=== PATIENT | female | born 1950 | race Hispanic/Latino ===

== ENCOUNTER → 2017-08-13 | Outpatient (CLI) | payer MEDICARE, OTHER ==
[~2017-08-13] MED LIST: AMLODIPINE BESYL5 MG PO; AMOXICILLIN250 MG PO; ATORVASTATIN CA20 MG PO; DICYCLOMINE HCL10 MG PO; HUMALOG100 UNIT/1 SQ; HUMALOG100 UNITS/; HYDROCHLOROTHIA25 MG PO; ISOPTO CARPINE15 ML OP; LEVEMIR100 UNIT/1; LEVEMIR100 UNIT/1 SQ; LINZESS PO; LOSARTAN POTAS100 MG PO; LOSARTAN POTASS25 MG PO; METFORMIN HCL500 M2 PO; METOPROLOL SUCC25 MG PO; NOVOLOG MI100 UNIT/1 SQ; PANTOPRAZOLE SO40 MG PO; SERTRALINE HCL50 MG PO; ULTRAM 50MG50 MG PO; XARELTO15 MG PO; XARELTO20 MG PO; ZEGERID 40 MG1 EACH PO; ZOLOFT50 MG PO
--- NOTE | 2017-08-13 13:41 | Diagnostic Imaging Report ---
PROCEDURE:L-SPINE COMPLETE COMPARISON:None. INDICATIONS:SPONDYLOSIS WITH RADICULOPATHY FINDINGS: There are 5 lumbar-type vertebral bodies. The vertebral bodies are well-aligned without evidence of spondylolisthesis. Degenerative changes spine anterior osteophytosis at multiple levels and bilateral facet hypertrophy at L4/L5. There are no fractures, lytic or blastic lesions. The disc-space heights are well-maintained. The sacroiliac joints are unremarkable. CONCLUSION: No acute radiographic abnormality. Degenerative changes. Dictated by: Law Wood M.D. on 08/13/2017 at 13:42 Electronically approved by: Law Wood M.D. on 08/13/2017 at 13:42
--- NOTE | 2017-08-13 13:42 | Diagnostic Imaging Report ---
PROCEDURE:SACRUM X-RAY TECHNIQUE: INDICATION:Pain. COMPARISON:None. FINDINGS: No acute fracture or dislocation. Bone mineralization is within normal limits. The soft tissues are unremarkable. No expansile or lytic or sclerotic lesion. CONCLUSION: No acute radiographic abnormality. Dictated by: Law Wood M.D. on 08/13/2017 at 13:43 Electronically approved by: Law Wood M.D. on 08/13/2017 at 13:43
== END ==
LOC: RAD 12:55
PROVIDERS: ATTEND Internal Medicine
DX: M47.27 Other spondylosis with radiculopathy, lumbosacral region (principal)
CPT/HCPCS: 72110; 72220

== ENCOUNTER → 2017-10-01 | Outpatient (CLI) | payer MEDICARE, OTHER ==
[~2017-10-01] MED LIST changes: +IOPAMIDOL 370 MG/ML 200 ML INFUS..BTL INJ ONE; +SODIUM CHLORIDE 0.9% 50ML 50 ML ONE
[2017-10-01 11:35] LABS: BLOOD UREA NITROGEN 9 mg/dL (7-26); BUN/CREATININE RATIO 12 (6-25); CREATININE, SERUM 0.76 mg/dL (0.57-1.11); EST GLOMERULAR FILTRATION RATE > 60 ML/MIN (60-)
--- NOTE | 2017-10-01 12:47 | Diagnostic Imaging Report ---
PROCEDURE: CT ABDOMEN WITH CONTRAST TECHNIQUE: The abdomen was scanned utilizing a multidetector helical scanner from the diaphragm to the iliac crest after the IV administration of 100 cc of Isovue 370 and the oral administration of water. Coronal and sagittal multiplanar reformations were obtained. COMPARISON: [facility], CT, CT ABDOMEN/PELVIS W, 10/07/2016, 21:09. INDICATIONS: UPPER ABDOMINAL PAIN FINDINGS: LOWER THORAX: Stable 3-4 mm nodule in the left lower lobe (series 2 image 10).. HEPATOBILIARY: No focal hepatic lesions. Stable mild central intrahepatic biliary ductal dilation and mild dilation of the common bile duct, which measures 9 mm at the alfredo hepatis. No radiopaque intraluminal filling defect. Cholecystectomy clips. SPLEEN: No splenomegaly. PANCREAS: No focal masses or ductal dilatation. Moderate pancreatic atrophy, stable ADRENALS: No adrenal nodules. KIDNEYS: No hydronephrosis, stones, or solid mass lesions. Stable subcentimeter hypodense lesion in the superior to mid right kidney (series 2 image 25), which is too small to characterize. PERITONEUM / RETROPERITONEUM: No free air or fluid. LYMPH NODES: No lymphadenopathy. VESSELS: Unremarkable. GI TRACT: No bowel dilation or evidence of obstruction. There is mild prominence of fluid-filled loops of jejunum (for example series 2, images 36-45) in the left upper quadrant, without surrounding fat stranding or intrarenal masses. Rest of bowel is unremarkable. BONES AND SOFT TISSUES: No aggressive lytic lesions. Degenerative disc changes in the lower thoracic and lumbosacral spine, predominantly at L4-L5. Facet hypertrophy L5-S1. IMPRESSION: 1. Findings in the jejunum may represent mild enteritis, in the appropriate clinical setting. No evidence of perforation or abscess formation. Rest of the bowel is unremarkable. 2. Stable 3-4 mm nodule in the left lower lobe. No further followup is indicated given its small size and stability per Fleischner Society 2017 guidelines. Anival Mina M.D. Dictated by: Anival Mina M.D. on 10/01/2017 at 12:49 Electronically approved by: Anival Mina M.D. on 10/01/2017 at 12:49
== END ==
LOC: CT 10:34
PROVIDERS: ATTEND Internal Medicine
DX: R10.10 Upper abdominal pain, unspecified (principal); R91.1 Solitary pulmonary nodule
CPT/HCPCS: 36415; 74160; 82565; 84520; Q9967

== ENCOUNTER → 2018-06-01 | Outpatient (CLI) | payer MEDICARE, OTHER ==
[~2018-06-01] MED LIST changes: -IOPAMIDOL 370 MG/ML 200 ML INFUS..BTL INJ ONE; -SODIUM CHLORIDE 0.9% 50ML 50 ML ONE
== END ==
LOC: MAMMO 13:10
PROVIDERS: ATTEND Internal Medicine
DX: Z12.31 Encounter for screening mammogram for malignant neoplasm of breast (principal)
CPT/HCPCS: 77067

== ENCOUNTER → 2019-03-14 | Outpatient (CLI) | payer MEDICARE, OTHER ==
--- NOTE | 2019-03-14 16:36 | Diagnostic Imaging Report ---
Abdomen, 2 views. History: Epigastric abdominal pain. Findings: Air is scattered throughout nondilated small and large bowel. Moderate stool is present. There are no air-fluid levels. There is no evidence of free air. Cholecystectomy is present in the right upper quadrant. There are no masses or abnormal calcifications. The osseous structures are intact. IMPRESSION: Nonobstructive bowel gas pattern. Signed by: Junito Lee on 03/14/2019 4:33 PM
== END ==
LOC: RAD 08:33
PROVIDERS: ATTEND Internal Medicine
DX: R10.10 Upper abdominal pain, unspecified (principal)
CPT/HCPCS: 74019

== ENCOUNTER → 2019-06-29 | Outpatient (CLI) | payer MEDICARE, OTHER | LOC: MAMMO 10:14 | PROVIDERS: ATTEND Internal Medicine | DX: Z12.31 Encounter for screening mammogram for malignant neoplasm of breast (principal) | CPT/HCPCS: 77067 ==

== ENCOUNTER → 2020-05-18 | Outpatient (CLI) | payer MEDICARE, OTHER | LOC: MAMMO 11:56 | PROVIDERS: ATTEND Internal Medicine | DX: Z12.31 Encounter for screening mammogram for malignant neoplasm of breast (principal) | CPT/HCPCS: 77067 ==

== ENCOUNTER → 2020-05-25 | Outpatient (CLI) | payer MEDICARE, OTHER | LOC: RAD 15:59 | PROVIDERS: ATTEND Internal Medicine | DX: M47.27 Other spondylosis with radiculopathy, lumbosacral region (principal) | CPT/HCPCS: 72110; 72220 ==

== ENCOUNTER → 2020-06-07 | Outpatient (CLI) | payer MEDICARE, OTHER | LOC: US 09:07 | PROVIDERS: ATTEND Internal Medicine | DX: R92.8 Other abnormal and inconclusive findings on diagnostic imaging of breast (principal) ==

== ENCOUNTER → 2020-11-26 | Outpatient (CLI) | payer MEDICARE, OTHER | LOC: RAD 13:30 | PROVIDERS: ATTEND Internal Medicine | DX: R06.02 Shortness of breath (principal) | CPT/HCPCS: 71046 ==

== ENCOUNTER → 2020-12-24 | Outpatient (CLI) | payer OTHER, MEDICARE | LOC: RAD 12:45 | PROVIDERS: ATTEND Internal Medicine | DX: R10.11 Right upper quadrant pain (principal) | CPT/HCPCS: 74018 ==

== ENCOUNTER → 2021-01-01 | Outpatient (CLI) | payer MEDICARE, OTHER ==
[~2021-01-01] MED LIST changes: +IOPAMIDOL 370 MG/ML 200 ML INFUS..BTL INJ ONE; +SODIUM CHLORIDE 0.9% 50ML 50 ML ONE
== END ==
LOC: CT 07:38
PROVIDERS: ATTEND Internal Medicine
DX: R10.11 Right upper quadrant pain (principal)
CPT/HCPCS: 74160; Q9967

== ENCOUNTER → 2021-02-28 | Outpatient (CLI) | payer MEDICARE, OTHER ==
[~2021-02-28] MED LIST changes: -IOPAMIDOL 370 MG/ML 200 ML INFUS..BTL INJ ONE; -SODIUM CHLORIDE 0.9% 50ML 50 ML ONE
== END ==
LOC: RAD 10:18
PROVIDERS: ATTEND Internal Medicine
DX: M10.062 Idiopathic gout, left knee (principal)

== ENCOUNTER → 2021-03-21 | Outpatient (CLI) | payer MEDICARE, OTHER | LOC: RAD 11:54 | DX: M25.561 Pain in right knee (principal); M25.562 Pain in left knee ==

== ENCOUNTER → 2021-06-18 | Outpatient (CLI) | payer MEDICARE, OTHER | LOC: MAMMO 10:23 | PROVIDERS: ATTEND Internal Medicine | DX: Z12.31 Encounter for screening mammogram for malignant neoplasm of breast (principal); G45.9 Transient cerebral ischemic attack, unspecified | CPT/HCPCS: 70551; 77067 ==

== ENCOUNTER 2022-01-14 10:18 | Emergency (ER) | payer MEDICARE, OTHER ==
[~2022-01-14] VITALS: Ht 149.9 cm; Wt 59.4 kg
[2022-01-14 11:21] LABS: BASOPHILS % 0.1 % (0.0-1.0); EOSINOPHILS % 0.1 % (0.0-6.0); HEMATOCRIT 43.5 % (34.2-44.1); HEMOGLOBIN 13.9 g/dL (12.0-16.0); LYMPHOCYTES # (AUTO) 1.1 (1.0-3.2); LYMPHOCYTES % 8.5 % (18.0-39.1); MEAN CORPUSCULAR HEMOGLOBIN 29.8 pg (28-32); MEAN CORPUSCULAR VOLUME 93.1 fL (81-99); MONOCYTES # (AUTO) 0.5 (0.2-0.8); NEUTROPHILS # (AUTO) 11.7 (2.1-6.9); NEUTROPHILS % 86.8 % (38.7-80.0); PLATELET COUNT 313 x10e3/uL (140-360); RED BLOOD COUNT 4.67 x10e6/uL (3.6-5.1); RED CELL DISTRIBUTION WIDTH 13.2 % (11.7-14.4)
[2022-01-14 11:44] LABS: ALBUMIN 3.8 g/dL (3.5-5.0); ALBUMIN/GLOBULIN RATIO 0.9 (0.8-2.0); CREATININE, SERUM 0.98 mg/dL (0.57-1.11); MAGNESIUM 2.4 MG/DL (1.3-2.1)
[2022-01-14] MEDS ORDERED: HYDRALAZINE HCL 20 MG/ML VIAL IV PRN (11:45)
[2022-01-14] MEDS ORDERED: SODIUM CHLORIDE 0.9% 100 ML ONE (12:08)
[2022-01-14] MEDS ORDERED: IOPAMIDOL 370 MG/ML 100 ML INFUS..BTL INJ ONE (12:08)
[2022-01-14] MEDS ORDERED: ASPIRIN 81 MG CHEW TAB PO ONE (13:30)
[2022-01-14] MEDS ORDERED: ASPIRIN81 MG PO (13:39)
[2022-01-14] MEDS ORDERED: ASPIRIN 325 MG TAB PO NR (13:45)
[2022-01-14 15:06] VITALS: BP 154/86
== END 2022-01-14 14:19 | disposition home or self-care (01) ==
LOC: ER 10:45
DX: G45.9 Transient cerebral ischemic attack, unspecified (principal); I10 Essential (primary) hypertension; E11.9 Type 2 diabetes mellitus without complications; I48.91 Unspecified atrial fibrillation; I25.2 Old myocardial infarction; I25.110 Atherosclerotic heart disease of native coronary artery with unstable angina pectoris; E78.5 Hyperlipidemia, unspecified; Z88.5 Allergy status to narcotic agent; Z88.0 Allergy status to penicillin; Z88.8 Allergy status to other drugs, medicaments and biological substances
CPT/HCPCS: 36415; 70496; 70498; 71045; 80053; 83735; 84484; 85025; 93005; 99283; J7050; Q9967

== ENCOUNTER → 2022-06-17 | Outpatient (CLI) | payer MEDICARE, OTHER ==
[~2022-06-17] MED LIST changes: +ASPIRIN81 MG PO
== END ==
LOC: MAMMO 12:49
PROVIDERS: ATTEND Internal Medicine
DX: Z12.31 Encounter for screening mammogram for malignant neoplasm of breast (principal)
CPT/HCPCS: 77067